=== PATIENT | female | born 1980 ===

== ENCOUNTER 2017-11-26 14:56 | Emergency (ER) | payer BC, MEDICAID ==
[2017-11-26 15:01] VITALS: BP 131/56; PULSE 74; RESP 16; TEMP 99.4; O2SAT 99
--- NOTE | 2017-11-26 15:35 | ED PDOC ---
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 Presents with a rash to the area ongoing for one week that is itchy and new in onset. Denies fever, chills, or other complaints. PCP: [facility] Past Medical History Reviewed: Historical Data, Nursing Documentation, Vital Signs Vital Signs: Last Vital Signs Temp 99.4 F 11/26/17 14:58 Pulse 74 11/26/17 14:58 Resp 16 11/26/17 14:58 BP 131/56 L 11/26/17 14:58 Pulse Ox 99 11/26/17 15:39 - Medical History PMH: No Chronic Diseases - Family History Family History: States: No Known Family Hx - Home Medications Home Medications: Ambulatory Orders Medication Instructions Recorded Hydrocortisone 0.5% CREAM 30 applic TOP BID #1 tube 11/26/17 [Cortizone 0.5% CREAM] Methylprednisolone [Medrol Dose 4 mg PO DAILY #21 mg 11/26/17 Pack (21 tabs)] - Allergies Allergies/Adverse Reactions: Allergies Allergy/AdvReac Type Severity Reaction Status Date / Time No Known Allergies Allergy Verified 11/26/17 14:58 Review of Systems ROS Statement: Except As Marked, All Systems Reviewed And Found Negative Constitutional: Negative for: Fever, Chills Skin: Positive for: Rash (on right foot) Physical Exam - Reviewed Nursing Documentation Reviewed: Yes Vital Signs Reviewed: Yes - Physical Exam Appears: Positive for: Well, Non-toxic, No Acute Distress Head Exam: Positive for: ATRAUMATIC, NORMAL INSPECTION, NORMOCEPHALIC Skin: Positive for: Normal Color, Warm, Dry Eye Exam: Positive for: Normal appearance Neck: Positive for: Normal, Painless ROM, Supple Cardiovascular/Chest: Negative for: Regular Rate, Rhythm Respiratory: Negative for: Accessory Muscle Use, Respiratory Distress Pulses-Dorsalis Pedis (R): 2+ Pulses-Post. Tibialis (R): 2+ Extremity: Positive for: Normal ROM, Other (Scaly red skin noted along the right lateral foot and distal region of the leg). Negative for: Pedal Edema Neurologic/Psych: Positive for: Alert, Oriented (x3). Negative for: Motor/ Sensory Deficits - Laboratory Results Result Diagrams: 11/26/17 16:08 - ECG O2 Sat by Pulse Oximetry: 99 (RA) Pulse Ox Interpretation: Normal - Progress ED Course And Treament: duplex: neg for dvt Patient has rash in similar regions of her body by elbows/hip Medical Decision Making Medical Decision Making: Time: 15:04 Initial impression: Rash Initial plan: CBC Duplex Lower Extremities ~ Scribe Attestation: Documented by Kamryn Campoverde, acting as a scribe for GABRIELLA Mallory. Provider Scribe Attestation: All medical record entries made by the Scribe were at my direction and personally dictated by me. I have reviewed the chart and agree that the record accurately reflects my personal performance of the history, physical exam, medical decision making, and the department course for this patient. I have also personally directed, reviewed, and agree with the discharge instructions and disposition. Disposition - Clinical Impression Clinical Impression: Rash and nonspecific skin eruption - Patient ED Disposition Is Patient to be Admitted: No - Disposition Disposition: Routine/Home Disposition Time: 16:45 Condition: FAIR Additional Instructions: f/u with dermatology Prescriptions: Hydrocortisone 0.5% CREAM [Cortizone 0.5% CREAM] 30 applic TOP BID #1 tube Methylprednisolone [Medrol Dose Pack (21 tabs)] 4 mg PO DAILY #21 mg Instructions: Acute Rash (ED) Forms: [employer] (Kinyarwanda)
--- NOTE | 2017-11-26 15:49 | US ---
PROCEDURE: Right lower extremity venous duplex Doppler. HISTORY: Rule out DVT COMPARISON: None available. TECHNIQUE: Common femoral, superficial femoral, popliteal and posterior tibial veins were evaluated. Flow was assessed with color Doppler, compressibility, assessment of phasic flow and augmentation response. FINDINGS: COMMON FEMORAL VEIN: Unremarkable. SUPERFICIAL FEMORAL VEIN: Unremarkable. POPLITEAL VEIN: Unremarkable. POSTERIOR TIBIAL VEIN: Unremarkable. OTHER FINDINGS: None. IMPRESSION: No evidence of deep venous thrombosis in the right lower extremity.
[2017-11-26 16:34] LABS: BASO % 0.5 % (0.0-2.0); EOS # 0.2 K/uL (0.0-0.7); EOS % 3.4 % (0.0-4.0); HEMOGLOBIN 12.4 g/dL (12.0-16.0); LYMPH % 17.6 % (20.0-40.0); MEAN CELL VOLUME 88.8 fl (81.0-99.0); MEAN CORPUSCULAR HEMOGLOBIN 29.1 pg (27.0-31.0); MEAN CORPUSCULAR HGB CONC 32.7 g/dL (33.0-37.0); MEAN PLATELET VOLUME 8.9 fl (7.2-11.7); MONO # 0.4 K/uL (0.0-0.8); MONO % 6.4 % (0.0-10.0); NEUT % 72.1 % (50.0-75.0); RBC 4.27 Mil/uL (3.80-5.20); RED CELL DISTRIBUTION WIDTH 12.9 % (11.5-14.5); WHITE BLOOD COUNT 5.5 K/uL (4.8-10.8)
== END 2017-11-26 17:00 | disposition home or self-care (01) ==
LOC: H.ER 14:56
DX: R21 Rash and other nonspecific skin eruption (principal)